=== PATIENT | male | born 1970 ===

== ENCOUNTER 2025-10-09 13:36 | Inpatient (IN) | payer OTHER, SELFPAY ==
[2025-10-09 13:39] VITALS: BP 119/69; PULSE 92; RESP 20; TEMP 35.7; O2SAT 96; BMI 29.7
--- NOTE | 2025-10-09 13:41 | ED.GENADULT ---
HPI - General Adult General Chief complaint: Psychiatric Symptoms Stated complaint: medical clearance Time Seen by Provider: 10/09/25 14:22 Source: patient Mode of arrival: ambulatory Limitations: no limitations History of Present Illness ED Provider: Rachael Kennedy PA-C HPI narrative: Patient is a 55 year old assigned male at with no reported medical history presenting to the emergency department today for possible psychiatric admission. Patient states that he was sent here by [facility] to be admitted to the psychiatric unit but needs to be medically cleared first. Patient denies any thoughts of hurting himself or others. Patient denies any other complaints at this time. Related Data Home Medications ?Medication ?Instructions ?Recorded ?Confirmed haloperidol 10 mg tablet 10 mg PO BEDTIME 10/10/25 10/10/25 melatonin 3 mg tablet 6 mg PO BEDTIME PRN Insomnia 10/10/25 10/10/25 Allergies Allergy/AdvReac Type Severity Reaction Status Date / Time aspirin (ASA) Allergy Unknown RASH Verified 10/09/25 13:41 ibuprofen (From MOTRIN) Allergy Unknown UNKNOWN Verified 10/09/25 13:41 Penicillins (PENICILLINS) Allergy Unknown RASH Verified 10/09/25 13:41 Review of Systems Constitutional: Constitutional: Reports as per HPI Eyes: Eyes: Reports as per HPI ENT: Reports as per HPI Cardiovascular: Cardiovascular: Reports as per HPI Respiratory: Respiratory: Reports as per HPI Gastrointestinal: Gastrointestinal: Reports as per HPI Genitourinary: Genitourinary: Reports as per HPI Musculoskeletal: Musculoskeletal: Reports as per HPI Integumentary/Breasts: Skin/Breast: Reports as per HPI Neurologic: Reports as per HPI Psychiatric: Psychiatric: Reports as per HPI Endocrine: Endocrine: Reports as per HPI Hematologic/Lymphatic: Hematologic/Lymphatic: Reports as per HPI Allergic/Immunologic: Allergic/Immunologic: Reports as per HPI PMFSH Past Medical History Attestation statement: The following information was validated with the patient. Source: old records reviewed and nursing notes reviewed Social History Social History Household Members: None Housing: Homeless Do you presently have visiting nurse or other home services: No Patient Tobacco Use Status: Current everyday Tobacco user Tobacco use type: Cigarette Smoked in Last 30 Days: Yes Patient Interested in Nicotine Replacement: Yes Patient Given Instructions on How to Stop Smoking: No Second Hand Smoke Exposure: No Currently Displaying Signs/Symptoms of Drug Intoxication Withdrawal: No Have you been hit, kicked, punched, or otherwise hurt by someone within the past year? If so, by whom?: No Do you feel safe in your current relationship?: Yes Is there a partner from a previous relationship who is making you feel unsafe now?: No Are you made to feel afraid or neglected: No Advance Directives: No Advance Directives Information Provided: Yes Do you have thoughts of harming others: None Do you have a plan to hurt others: No Plan Recently lost weight without trying: No How much weight loss: Not applicable Eating poorly because of decreased appetite: No Nutrition screen score: 0 Nutrition Risks: No Nutritional Risk Poor oral hygiene: No Physical Exam ED Vital Signs: Vital Signs - 24 hr 10/09/25 13:39 Temperature 96.2 F L Pulse Rate 92 Respiratory Rate 20 Blood Pressure 119/69 Pulse Oximetry 96 Oxygen Delivery Method Room Air BMI result Body Mass Index 29.7 Const General: cooperative, no acute distress, alert and awake Nutritional Appearance: well nourished Orientation/consciousness: patient oriented x3 HENMT Head: Yes normal to inspection and Yes atraumatic Ears: hearing grossly normal bilaterally and external ears normal General nose exam: Normal external nose present, no nasal discharge noted and no epistaxis Face and sinus: Yes normal facial exam, No abrasion and No laceration Mouth: Normal oral and palatal mucosa present, no drooling and no muffled voice Eyes General: appearance normal, both eyes and all related structures Periorbital: periorbital findings normal Eyelids: Yes eyelids normal Conjunctivae: conjunctivae normal Pupils: Equal, round and reactive pupils present EOM: EOMs intact bilaterally Neck Neck: Yes normal visual inspection and Yes full ROM Resp Effort & Inspection: normal respiratory effort and able to speak in complete sentences Neuro General: patient oriented x3, moves all extremities and CN's II-XI intact bilaterally Cranial nerves: Yes Equal, round and reactive pupils present Cognition (Neuro): normal cognition Extrem General: Yes normal to inspection, Yes full ROM and Yes capillary refill normal Psych Appearance: grossly normal Mental Status: mental status grossly normal Course Course Course Narrative: This is a Rapid Medical Examination (RME) performed by Sonja Alvarado PA-C in triage. Full HPI, ROS, assessment and treatment plan per primary provider in the Main ED. Hx: 55 yo M here with nephew. patient was seen by [facility] crisis - [facility] however advised he come here to be medically cleared as he is confused and not taking his meds. patient denies si/hi. Plan: labs, UA, UDS, ekg - once medically cleared, needs to be referred to care team. Medications Administered Generic Name Dose Route Start Last Admin Trade Name Freq PRN Reason Stop Dose Admin Acetaminophen 650 mg 10/10/25 13:03 10/10/25 14:55 Acetaminophen 325 Mg Tablet PO 650 mg Q6H PRN Administration Headache/Pain, Scale 1-10 Buprenorphine/Naloxone 1 film 10/10/25 16:30 10/10/25 21:30 Buprenorphine/Naloxone 8/2 Mg Film SUBLINGUAL 1 film TID KACI Administration Haloperidol 5 mg 10/10/25 21:00 10/10/25 21:30 Haloperidol 5 Mg Tablet PO 5 mg BEDTIME KACI Administration Hydroxyzine HCl 25 mg 10/10/25 13:03 10/10/25 15:45 Hydroxyzine Hcl 25 Mg Tablet PO 25 mg Q6H PRN Administration mild anxiety Melatonin 6 mg 10/10/25 21:00 10/10/25 21:30 Melatonin 3 Mg Tablet PO 6 mg BEDTIME KACI Administration Nicotine Polacrilex 4 mg 10/10/25 13:03 10/10/25 15:45 Nicotine Polacrilex 2 Mg Gum BUCCAL 4 mg Q2H PRN Administration Nicotine Cravings Discontinued Medications Generic Name Dose Route Start Last Admin Trade Name Freq PRN Reason Stop Dose Admin Influenza Virus Vaccine 0.5 ml 10/10/25 16:29 10/10/25 17:09 Flu Vacc [id number](6mo Up)/Pf 0.5 Ml Syringe IM 10/10/25 16:30 0.5 ml .ONCE ONE Administration Olanzapine 5 mg 10/10/25 13:03 10/10/25 15:44 Olanzapine 5 Mg Tablet PO 5 mg Q4H PRN Administration agitation Medical Decision Making Medical Decision Making [facility] Narrative: Patient is a 55 year old assigned male at with no reported medical history presenting to the emergency department today for possible psychiatric admission. Patient's physical exam was as noted in the physical exam portion of this note. Patient's blood work was unremarkable. Patient's urine showed no acute process. I explained my physical exam findings as well as all test results to the patient. I answered all questions asked by the patient. Patient's disposition pending CARE team evaluation. Patient placed in observation at 1430. Differential Diagnosis Differential Diagnoses: The differential diagnosis associated with the presentation includes Psychosis Psychiatric illness Admission/Observation Consideration of admission/observation: Escalation of care including admission/observation considered Patient's disposition will be determined after CARE team evaluation. Lab Data [facility] Lab Attestation statement: I reviewed the patient's lab results. My interpretation of these results are in the [facility] Rationale portion of this note. 10/09/25 14:05 10/09/25 14:05 Labs: Lab Results 10/09/25 10/09/25 10/09/25 Range/Units 14:05 14:07 16:11 WBC 6.6 (4.8-10.8) X10*3/uL RBC 4.36 L (4.60-5.80) X10*6/uL Hgb 12.7 L (14.0-18.0) g/dl Hct 37.3 L (42.0-52.0) % MCV 85.6 (80.0-98.0) fL MCH 29.1 (27.0-33.0) pg MCHC 34.0 (31.0-36.0) g/dl RDW 12.8 (11.0-16.0) % Plt Count 226 (160-400) X10*3/uL MPV 9.7 (9.4-12.4) fL Immature Gran % (Auto) 0.2 (0.0-0.4) % Neut % (Auto) 73.0 (45-73) % Lymph % (Auto) 20.9 (20-40) % [place] % (Auto) 5.5 (2-11) % Eos % (Auto) 0.2 (0-4) % Baso % (Auto) 0.2 (0-2) % Lymph # (Auto) 1.4 (1.2-4.9) X10*3/uL [place] # (Auto) 0.4 (0.1-1.2) X10*3/uL Eos # (Auto) 0.0 (0.0-0.4) X10*3/uL Baso # (Auto) 0.0 (0.0-0.2) X10*3/uL Abs Immat Gran (auto) 0.01 (0.00-0.03) X10*3/uL Absolute Neuts (auto) 4.8 (2.0-8.3) x10*3/uL Absolute Nucleated RBC 0.000 (0.0-0.012) X10*3/uL Nucleated RBC % (auto) 0.0 (0.0-0.2) /100WBC Sodium 141 (135-145) mmol/L Potassium 4.0 (3.3-5.1) mmol/L Chloride 109 H (96-108) mmol/L Carbon Dioxide 22 (22-29) mmol/L Anion Gap 14 (12-20) BUN 18 H (9-16) mg/dL Creatinine 1.18 (0.5-1.4) mg/dL Estim Creat Clear Calc 89.8 Estimated GFR > 60 Random Glucose 134 H (60-115) mg/dL Calcium 9.5 (8.4-10.2) mg/dL Magnesium 1.8 (1.6-2.6) mg/dL Total Bilirubin 0.3 (0.0-1.0) mg/dL AST 14 (5-37) U/L ALT 11 (0-40) U/L Alkaline Phosphatase 70 (39-117) U/L Total Protein 8.1 H (6.5-8.0) g/dL Albumin 4.6 (3.5-5.0) g/dL Lipase 18 (8-78) U/L Urine Color Yellow Yellow Urine Appearance Clear Clear Urine pH 5.5 6.0 (5.0-9.0) Ur Specific [place] 1.020 1.015 (1.005-1.025) Urine Protein Negative Negative (Neg-Trace) mg/dL Urine Glucose (UA) Negative Negative (Negative) mg/dL Urine Ketones Negative Negative (Negative) mg/dL Urine Blood Small (1+) H Small (1+) H (Negative) Urine Nitrite Negative Negative (Negative) Ur Leukocyte Esterase Negative Negative (Negative) Urine RBC 0-2 0-2 (0-2) /HPF Urine WBC 0-5 0-5 (0-5) /HPF Ur Squamous Epith Cells 0-2 0-2 (0-2) /HPF Urine Bacteria None Seen None Seen (None Seen) Hyaline Casts 0-2 0-2 (0-2) /LPF Salicylates < 5.0 L (15-30) mg/dL Urine Opiates Screen Not Detected (Not Detect) Ur Buprenorphine Scrn Positive H (Not Detect) ng/mL Ur Oxycodone Screen Not Detected (Not Detect) ng/mL Urine Methadone Screen Not Detected (Not Detect) ng/mL Urine Fentanyl Screen Not Detected (Not Detect) Acetaminophen < 3 (<30) mcg/mL Ur Barbiturates Screen Not Detected (Not Detect) Ur Phencyclidine Scrn Not Detected (Not Detect) Ur Amphetamines Screen Not Detected (Not Detect) U Benzodiazepines Scrn Not Detected (Not Detect) Urine Cocaine Screen Not Detected (Not Detect) U Marijuana (THC) Screen Not Detected (Not Detect) Ethyl Alcohol < 10 mg/dL Critical Care Time Critical Care Time Critical Care Time: Yes Total Critical Care Time: 34 Attestation: I spent 34 minutes of Critical Care Time with this patient. This does not include time spent on separately reported billable procedures. Discharge Plan Discharge Clinical Impression: Depressed Patient Disposition: Admitted As Inpatient Interventions: Admission Worksheet (ED) Last Done: 10/10/25 14:26 Discharge Date/Time: 10/10/25 14:39
--- NOTE | 2025-10-09 13:47 | ECG_ITS ---
Test Reason : MEDICAL CLEARANCE Blood Pressure : */* mmHG Vent. Rate : 88 BPM Atrial Rate : 88 BPM P-R Int : 154 ms QRS Dur : 88 ms QT Int : 388 ms P-R-T Axes : 49 55 61 degrees QTcB Int : 469 ms Normal sinus rhythm Normal ECG No previous ECGs available Referred By: Jelena Alvarado Electronically Signed By: NAGI KERR
[2025-10-09 14:25] LABS: MANUAL DIFF FLAG NO
[2025-10-09 14:26] LABS: Hematocrit 37.3 % (42.0-52.0); Hemoglobin 12.7 g/dl (14.0-18.0); Imm Gran Abs Auto 0.01 X10*3/uL (0.00-0.03); Imm Gran Pct Auto 0.2 % (0.0-0.4); Lymphocytes Absolute Auto 1.4 X10*3/uL (1.2-4.9); Mean Corpuscular HGB Conc 34.0 g/dl (31.0-36.0); Mean Corpuscular Hemoglobin 29.1 pg (27.0-33.0); Mean Corpuscular Volume 85.6 fL (80.0-98.0); NRBC Abs Auto 0.000 X10*3/uL (0.0-0.012); NRBC Pct Auto 0.0 /100WBC (0.0-0.2); Platelet Count 226 X10*3/uL (160-400); Red Blood Count 4.36 X10*6/uL (4.60-5.80); White Blood Count 6.6 X10*3/uL (4.8-10.8)
[2025-10-09 14:27] LABS: Appearance Urine Clear; Glucose Urine UA Negative (Negative); PH 5.5 (5.0-9.0); Specific Gravity - Urine 1.020 (1.005-1.025); UMIC TRIGGER UACC YES
[2025-10-09 14:36] LABS: Cannabinoid Screen Urine Not Detected (Not Detect)
[2025-10-09 14:43] LABS: Acetaminophen LAB < 3 mcg/mL (<30); Alanine Aminotransferase 11 U/L (0-40); Albumin Level 4.6 g/dL (3.5-5.0); Alkaline Phosphatase 70 U/L (39-117); Anion Gap 14 (12-20); Aspartate Amino Transferase 14 U/L (5-37); Blood Urea Nitrogen 18 mg/dL (9-16); Calcium 9.5 mg/dL (8.4-10.2); Carbon Dioxide 22 mmol/L (22-29); Chloride 109 mmol/L (96-108); Creatinine Clr Calc Pharmacy 89.8; Estimated Glomerular Filt Rate > 60; Lipase 18 U/L (8-78); Magnesium 1.8 mg/dL (1.6-2.6); Potassium 4.0 mmol/L (3.3-5.1); Salicylate < 5.0 mg/dL (15-30); Sodium 141 mmol/L (135-145); Total Protein 8.1 g/dL (6.5-8.0)
[2025-10-09 16:18] LABS: Appearance Urine Clear; Glucose Urine UA Negative (Negative); PH 6.0 (5.0-9.0); Specific Gravity - Urine 1.015 (1.005-1.025); UMIC TRIGGER UACC YES
--- NOTE | 2025-10-09 17:09 | MHC.EDTECH ---
Personal items moved from locker 9 to locker 4.
[2025-10-09 20:44] VITALS: BP 137/72; PULSE 76; RESP 16; TEMP 36.4; O2SAT 97
--- NOTE | 2025-10-09 23:32 | PC.NURSE ---
Took over care from MARTI Hewitt, no sign of distress.
[2025-10-10 06:31] VITALS: BP 119/75; PULSE 72; RESP 16; TEMP 36; O2SAT 99
--- NOTE | 2025-10-10 11:10 | PHA.MEDREC ---
Pharmacy Consult ? Medication Reconciliation Pharmacy has reviewed the medication reconciliation completed by nursing.
[2025-10-10 13:57] VITALS: BP 108/60; PULSE 68; RESP 14; TEMP 36.2; O2SAT 98
[2025-10-10 14:50] VITALS: BP 136/88; PULSE 86; RESP 16; TEMP 37; O2SAT 96
[2025-10-10 15:19] VITALS: BMI 29.2
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
[2025-10-10] MEDS: Flu Vacc TS2025-26(6mo up)/PF 0.5 ML SYRINGE IM (17:09)
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
[2025-10-10 19:40] VITALS: BP 131/77; PULSE 81; RESP 16; TEMP 2.4; TEMP 36.4; O2SAT 98
[2025-10-11 08:21] VITALS: BP 95/61; PULSE 59; RESP 14; TEMP 36.6; O2SAT 95
--- NOTE | 2025-10-11 08:21 | P.CONHOSP_ITS ---
History of Present Illness Data of Consult Service Date: 10/11/25 Primary Care Provider: Unknown Physician HPI Reason for consult: Medical Consult 55-year-old male with past medical history of schizoaffective disorder, PTSD, opioid use disorder and cocaine use disorder, chronic back and leg pain presented to the emergency room with increased anxiety and depression, medication nonadherence. Patient was sent by [facility] for psychiatric admission evaluation. Workup in the ED revealed mild anemia, no leukocytosis, no evidence of renal or liver dysfunction, no electrolyte imbalances. Urine without evidence of infection. Tox screen positive for buprenorphine. No alcohol. On exam he reports chronic leg and back pain, takes gabapentin which is confirmed with mass PAT. He otherwise feels well has no medical concerns. Assisted by [employer] manager. Review of Systems 2 Review of Systems: Denies any shortness of breath, chest pain, headaches, dysuria, abdominal pain or discomfort, nausea, vomiting or diarrhea. Denies fever or chills. [facility] Social History Household Members: None Housing: Homeless Do you presently have visiting nurse or other home services: No Patient Tobacco Use Status: Current everyday Tobacco user Tobacco use type: Cigarette Smoked in Last 30 Days: Yes Patient Interested in Nicotine Replacement: Yes Patient Given Instructions on How to Stop Smoking: No Second Hand Smoke Exposure: No Currently Displaying Signs/Symptoms of Drug Intoxication Withdrawal: No Have you been hit, kicked, punched, or otherwise hurt by someone within the past year? If so, by whom?: No Do you feel safe in your current relationship?: Yes Is there a partner from a previous relationship who is making you feel unsafe now?: No Are you made to feel afraid or neglected: No Advance Directives: No Advance Directives Information Provided: Yes Do you have thoughts of harming others: None Do you have a plan to hurt others: No Plan Recently lost weight without trying: No How much weight loss: Not applicable Eating poorly because of decreased appetite: No Nutrition screen score: 0 Nutrition Risks: No Nutritional Risk Poor oral hygiene: No service: No Sexual orientation: Straight/Heterosexual Meds Allergies Allergy/AdvReac Type Severity Reaction Status Date / Time aspirin (ASA) Allergy Unknown RASH Verified 10/09/25 13:41 ibuprofen (From MOTRIN) Allergy Unknown UNKNOWN Verified 10/09/25 13:41 Penicillins (PENICILLINS) Allergy Unknown RASH Verified 10/09/25 13:41 Active Medications: Current Medications Acetaminophen (Acetaminophen 325 Mg Tablet) 650 mg PO Q6H PRN PRN Reason: Headache/Pain, Scale 1-10 Last Admin: 10/10/25 14:55 Dose: 650 mg Al Hydroxide/Mg Hydroxide (Magnesium Hydrox/Alum Hydrox 30 Ml Oral.Susp) 30 ml PO Q6H PRN PRN Reason: Heartburn/Nausea Buprenorphine/Naloxone (Buprenorphine/Naloxone 8/2 Mg Film) 1 film SUBLINGUAL TID KACI Last Admin: 10/10/25 21:30 Dose: 1 film Haloperidol (Haloperidol 5 Mg Tablet) 5 mg PO BEDTIME KACI Last Admin: 10/10/25 21:30 Dose: 5 mg Haloperidol (Haloperidol 5 Mg Tablet) 5 mg PO TID PRN PRN Reason: agitation/psychosis Hydroxyzine HCl (Hydroxyzine Hcl 25 Mg Tablet) 25 mg PO Q6H PRN PRN Reason: mild anxiety Last Admin: 10/10/25 15:45 Dose: 25 mg Magnesium Hydroxide (Milk Of Magnesia 30 Ml Oral.Susp) 30 ml PO DAILY PRN PRN Reason: Constipation Melatonin (Melatonin 3 Mg Tablet) 6 mg PO BEDTIME [facility] Last Admin: 10/10/25 21:30 Dose: 6 mg Nicotine (Nicotine 21 Mg Patch.Td24) 21 mg TRANSDERMA DAILY [facility] Nicotine Polacrilex (Nicotine Polacrilex 2 Mg Gum) 4 mg BUCCAL Q2H PRN PRN Reason: Nicotine Cravings Last Admin: 10/10/25 15:45 Dose: 4 mg Trazodone HCl (Trazodone Hcl 50 Mg Tablet) 50 mg PO BEDTIME MRX1 PRN PRN Reason: Insomnia Home Medications ?Medication ?Instructions ?Recorded ?Confirmed ?Last Taken ?Type haloperidol 10 mg tablet 10 mg PO BEDTIME 10/10/25 Unknown History melatonin 3 mg tablet 6 mg PO BEDTIME PRN Insomnia 10/10/25 10/10/25 Unknown History Physical Exam 2 Vital Signs and Narrative: Vital Signs: Last Vital Signs Temp 36.4 F L 10/10/25 19:40 Pulse 81 10/10/25 19:40 Resp 16 10/10/25 19:40 BP 131/77 10/10/25 19:40 Pulse Ox 98 10/10/25 19:40 O2 Del Method Room Air 12/03/25 19:40 BMI result Body Mass Index 29.2 Alert and oriented X3, calm and cooperative. Answers questions. Neuro: CN II-X11 intact, no deficits, visual acuity intact EYES: PERRLA, EOM intact ENT: Hearing intact, MMM Cardiac: S1 S2 RRR, No ectopy Pulmonary: lungs clear to auscultation, No increased WOB. Abdominal: BS active in all 4 quadrants, no guarding or tenderness MSK: Strength 5/5 upper and lower extremities. Shaking his legs during the visit. : Deferred Extremities: No edema in lower extremities Psych: Mood stable, Quiet and cooperative. Skin: Warm and dry, Intact Results Labs 10/09/25 14:05 10/09/25 14:05 Assessment and Plan (1) Chronic back pain: Status: Acute Plan 55-year-old male with past medical history listed below who presented to the ED with increased depression and anxiety from CHD. Now admitted for inpatient stabilization. Opioid use disorder/cocaine use disorder/PTSD/depression/anxiety/schizoaffective disorder Treatment per psychiatric team Chronic leg and back pain Continue gabapentin 400 mg t.i.d. Confirmed that patient has been receiving this dose per mass PAT Thank you for allowing me to participate in the care of this patient. Will follow with you, please notify medical provider with any changes in condition or concerns.
[2025-10-11] MEDS: Nicotine 21 MG PATCH.TD24 TRANSDERMA (08:43)
--- NOTE | 2025-10-11 10:05 | HO.PSYCHPN ---
Subjective Subjective Date of Service: 10/11/25 Reason For Visit: crisis Subjective Notes: Conditional Voluntary Interim History: <del>Laying</del> <del>in</del> <del>bed.</del> <del>[place]olan</del> <del>vp site</del> <del>present.</del> <del>Patient</del> <del>observed</del> <del>consistently</del> <del>shaking</del> <del>legs</del> <del>throughout</del> <del>assessment.</del> <del>Patient</del> <del>reports</del> <del>feeling</del> <del> anxious</del> <del>and</del> <del>depressed </del> <del>today;</del> <del>pt</del> <del>continues</del> <del>to</del> <del>reports</del> <del>auditory</del> <del>hallucinations</del> <del>however</del> <del>will</del> <del>not</del> <del>go</del> <del>into</del> <del>detail</del> <del>about</del> <del>what</del> <del>the</del> <del>voices</del> <del>are</del> <del>saying.</del> <del>He</del> <del>reports</del> <del>visual</del> <del>hallucinations</del> <del>of</del> <del> shadows .</del> <del>denies</del> <del>SI/HI.</del> <del>Patient</del> <del>reports</del> <del>he</del> <del>is</del> <del> still</del> <del>have</del> <del>voices</del> <del>but</del> <del>they</del> <del>are</del> <del>less</del> <del>today ;</del> <del>denies</del> <del>any</del> <del>side</del> <del>effects</del> <del>from</del> <del>medications.</del> <del>Increase</del> <del>Haldol</del> <del>to</del> <del>10mg</del> <del>PO</del> <del>bedtime.</del> <del>He</del> <del>reports</del> <del>sleeping</del> <del>well.</del> <del>Encouraged</del> <del>to</del> <del>get</del> <del>out</del> <del>of</del> <del>be</del>d. Medication Compliance: Yes Side effects from medications: No Attending Groups: No Mental Status Exam Mental Status Exam Narrative: Pt is alert and oriented; behavior is cooperative and calm, guarded, legs shaking throughout assessment; dressed in casual attire; mood is described as anxious and depressed ; eye contact appropriate; Speech is normal rate, volume and not pressured; thought process is organized; Thought content is on tx; denies SI/HI. +AH, +VH of shadows . Diagnostics Vital Signs (24Hr): Vital Signs - 24 hr 10/10/25 13:57 10/10/25 14:50 10/10/25 19:40 Temperature 97.2 F 98.6 F 36.4 F L Pulse Rate 68 86 81 Respiratory Rate 14 16 16 Blood Pressure 108/60 136/88 131/77 Pulse Oximetry 98 96 98 Oxygen Delivery Method Room Air Room Air Room Air 10/11/25 08:21 Temperature 97.8 F Pulse Rate 59 Respiratory Rate 14 Blood Pressure 95/61 Pulse Oximetry 95 Oxygen Delivery Method Room Air BMI result Body Mass Index 29.2 Labs 10/09/25 14:05 10/09/25 14:05 Labs: Laboratory Results - last 48 hr 10/09/25 10/09/25 10/09/25 14:05 14:07 16:11 WBC 6.6 RBC 4.36 L Hgb 12.7 L Hct 37.3 L MCV 85.6 MCH 29.1 MCHC 34.0 RDW 12.8 Plt Count 226 MPV 9.7 Immature Gran % (Auto) 0.2 Neut % (Auto) 73.0 Lymph % (Auto) 20.9 [place] % (Auto) 5.5 Eos % (Auto) 0.2 Baso % (Auto) 0.2 Lymph # (Auto) 1.4 [place] # (Auto) 0.4 Eos # (Auto) 0.0 Baso # (Auto) 0.0 Abs Immat Gran (auto) 0.01 Absolute Neuts (auto) 4.8 Absolute Nucleated RBC 0.000 Nucleated RBC % (auto) 0.0 Sodium 141 Potassium 4.0 Chloride 109 H Carbon Dioxide 22 Anion Gap 14 BUN 18 H Creatinine 1.18 Estim Creat Clear Calc 89.8 Estimated GFR > 60 Random Glucose 134 H Calcium 9.5 Magnesium 1.8 Total Bilirubin 0.3 AST 14 ALT 11 Alkaline Phosphatase 70 Total Protein 8.1 H Albumin 4.6 Lipase 18 Urine Color Yellow Yellow Urine Appearance Clear Clear Urine pH 5.5 6.0 Ur Specific [place] 1.020 1.015 Urine Protein Negative Negative Urine Glucose (UA) Negative Negative Urine Ketones Negative Negative Urine Blood Small (1+) H Small (1+) H Urine Nitrite Negative Negative Ur Leukocyte Esterase Negative Negative Urine RBC 0-2 0-2 Urine WBC 0-5 0-5 Ur Squamous Epith Cells 0-2 0-2 Urine Bacteria None Seen None Seen Hyaline Casts 0-2 0-2 Salicylates < 5.0 L Urine Opiates Screen Not Detected Ur Buprenorphine Scrn Positive H Ur Oxycodone Screen Not Detected Urine Methadone Screen Not Detected Urine Fentanyl Screen Not Detected Acetaminophen < 3 Ur Barbiturates Screen Not Detected Ur Phencyclidine Scrn Not Detected Ur Amphetamines Screen Not Detected U Benzodiazepines Scrn Not Detected Urine Cocaine Screen Not Detected U Marijuana (THC) Screen Not Detected Ethyl Alcohol < 10 Medications Medications Current Medications Acetaminophen (Acetaminophen 325 Mg Tablet) 650 mg PO Q6H PRN PRN Reason: Headache/Pain, Scale 1-10 Last Admin: 10/11/25 08:47 Dose: 650 mg Al Hydroxide/Mg Hydroxide (Magnesium Hydrox/Alum Hydrox 30 Ml Oral.Susp) 30 ml PO Q6H PRN PRN Reason: Heartburn/Nausea Buprenorphine/Naloxone (Buprenorphine/Naloxone 8/2 Mg Film) 1 film SUBLINGUAL TID KACI Last Admin: 10/11/25 08:44 Dose: 1 film Haloperidol (Haloperidol 5 Mg Tablet) 5 mg PO BEDTIME KACI Last Admin: 10/10/25 21:30 Dose: 5 mg Haloperidol (Haloperidol 5 Mg Tablet) 5 mg PO TID PRN PRN Reason: agitation/psychosis Hydroxyzine HCl (Hydroxyzine Hcl 25 Mg Tablet) 25 mg PO Q6H PRN PRN Reason: mild anxiety Last Admin: 10/10/25 15:45 Dose: 25 mg Magnesium Hydroxide (Milk Of Magnesia 30 Ml Oral.Susp) 30 ml PO DAILY PRN PRN Reason: Constipation Melatonin (Melatonin 3 Mg Tablet) 6 mg PO BEDTIME KACI Last Admin: 10/10/25 21:30 Dose: 6 mg Nicotine (Nicotine 21 Mg Patch.Td24) 21 mg TRANSDERMA DAILY [facility] Last Admin: 10/11/25 08:43 Dose: 21 mg Nicotine Polacrilex (Nicotine Polacrilex 2 Mg Gum) 4 mg BUCCAL Q2H PRN PRN Reason: Nicotine Cravings Last Admin: 10/10/25 15:45 Dose: 4 mg Trazodone HCl (Trazodone Hcl 50 Mg Tablet) 50 mg PO BEDTIME MRX1 PRN PRN Reason: Insomnia Allergies Allergies Allergy/AdvReac Type Severity Reaction Status Date / Time aspirin (ASA) Allergy Unknown RASH Verified 10/09/25 13:41 ibuprofen (From MOTRIN) Allergy Unknown UNKNOWN Verified 10/09/25 13:41 Penicillins (PENICILLINS) Allergy Unknown RASH Verified 10/09/25 13:41 Assessment & Plan Assessment & Plan (1) Schizoaffective disorder: Status: Acute Code(s): F25.9 - Schizoaffective disorder, unspecified (2) PTSD (post-traumatic stress disorder): Status: Acute Code(s): F43.10 - Post-traumatic stress disorder, unspecified (3) Opioid use disorder: Status: Acute Code(s): F11.90 - Opioid use, unspecified, uncomplicated (4) Cocaine use disorder in remission: Status: Acute Code(s): F14.91 - Cocaine use, unspecified, in remission (5) Homelessness: Status: Acute Code(s): Z59.00 - Homelessness unspecified Plan Patient is a 55 year old male with hx of schizoaffective d/o, PTSD, opioid use d/o and cocaine use d/o who presented to ER with his nephew due to increased anxiety and depression secondary to medication noncompliance. Plan: CV 15 minute safety checks Obtain collateral Addiction medicine consult Encourage groups Referral to outpatient psychiatric providers Discharge planning 10/11: Laying in bed. full time staff interpreter present. Patient observed consistently shaking legs throughout assessment. Patient reports feeling anxious and depressed today; pt continues to reports auditory hallucinations however will not go into detail about what the voices are saying. He reports visual hallucinations of shadows . denies SI/HI. Patient reports he is still have voices but they are less today ; denies any side effects from medications. Increase Haldol to 10mg PO bedtime. He reports sleeping well. Encouraged to get out of bed. Patient educated on: diagnosis and medication risk/benefits Reason for continued inpatient stay Substantial Risk for: med/psych decompensation Time Spent With Patient Time: Total time managing care of this patient today _20___ minutes.
[2025-10-11 20:00] VITALS: BP 122/65; PULSE 65; RESP 18; TEMP 36.5; O2SAT 100
[2025-10-12 07:44] VITALS: BP 93/66; PULSE 58; RESP 18; TEMP 36.7; O2SAT 99
[2025-10-12] MEDS: Nicotine 21 MG PATCH.TD24 TRANSDERMA (08:37)
--- NOTE | 2025-10-12 14:22 | HO.PSYCHPN ---
Subjective Subjective Date of Service: 10/12/25 Reason For Visit: crisis Subjective Notes: Conditional Voluntary Interim History: oral communication instructor present. Patient reports feeling depressed today; pt continues to reports auditory hallucinations but declines to state what he is hearing. denies SI/HI/VH. Encouraged to utilize PRN Haldol if needed. He reports sleeping well. Continue tx plan. Medication Compliance: Yes Side effects from medications: No Attending Groups: No Mental Status Exam Mental Status Exam Narrative: Pt is alert and oriented; behavior is cooperative and calm, guarded; dressed in casual attire; mood is described as depressed ; eye contact appropriate; Speech is normal rate, volume and not pressured; thought process is organized; Thought content is on tx; denies SI/HI/VH. +AH Diagnostics Vital Signs (24Hr): Vital Signs - 24 hr 10/11/25 20:00 10/12/25 07:44 Temperature 97.7 F 98.1 F Pulse Rate 65 58 Respiratory Rate 18 18 Blood Pressure 122/65 93/66 Pulse Oximetry 100 99 Oxygen Delivery Method Room Air Room Air BMI result Body Mass Index 29.2 Labs 10/09/25 14:05 10/09/25 14:05 Medications Medications Current Medications Acetaminophen (Acetaminophen 325 Mg Tablet) 650 mg PO Q6H PRN PRN Reason: Headache/Pain, Scale 1-10 Last Admin: 10/11/25 08:47 Dose: 650 mg Al Hydroxide/Mg Hydroxide (Magnesium Hydrox/Alum Hydrox 30 Ml Oral.Susp) 30 ml PO Q6H PRN PRN Reason: Heartburn/Nausea Buprenorphine/Naloxone (Buprenorphine/Naloxone 8/2 Mg Film) 1 film SUBLINGUAL TID [facility] Last Admin: 10/12/25 08:37 Dose: 1 film Gabapentin (Gabapentin 400 Mg Capsule) 400 mg PO TID [facility] Last Admin: 10/12/25 08:37 Dose: 400 mg Haloperidol (Haloperidol 5 Mg Tablet) 5 mg PO TID PRN PRN Reason: agitation/psychosis Last Admin: 10/11/25 11:44 Dose: 5 mg Haloperidol (Haloperidol 5 Mg Tablet) 10 mg PO BEDTIME [facility] Last Admin: 10/11/25 20:12 Dose: 10 mg Hydroxyzine HCl (Hydroxyzine Hcl 25 Mg Tablet) 25 mg PO Q6H PRN PRN Reason: mild anxiety Last Admin: 10/11/25 11:29 Dose: 25 mg Magnesium Hydroxide (Milk Of Magnesia 30 Ml Oral.Susp) 30 ml PO DAILY PRN PRN Reason: Constipation Melatonin (Melatonin 3 Mg Tablet) 6 mg PO BEDTIME [facility] Last Admin: 10/11/25 20:11 Dose: 6 mg Nicotine (Nicotine 21 Mg Patch.Td24) 21 mg TRANSDERMA DAILY [facility] Last Admin: 10/12/25 08:37 Dose: 21 mg Nicotine Polacrilex (Nicotine Polacrilex 2 Mg Gum) 4 mg BUCCAL Q2H PRN PRN Reason: Nicotine Cravings Last Admin: 10/10/25 15:45 Dose: 4 mg Trazodone HCl (Trazodone Hcl 50 Mg Tablet) 50 mg PO BEDTIME MRX1 PRN PRN Reason: Insomnia Allergies Allergies Allergy/AdvReac Type Severity Reaction Status Date / Time aspirin (ASA) Allergy Unknown RASH Verified 10/09/25 13:41 ibuprofen (From MOTRIN) Allergy Unknown UNKNOWN Verified 10/09/25 13:41 Penicillins (PENICILLINS) Allergy Unknown RASH Verified 10/09/25 13:41 Assessment & Plan Assessment & Plan (1) Schizoaffective disorder: Status: Acute Code(s): F25.9 - Schizoaffective disorder, unspecified (2) PTSD (post-traumatic stress disorder): Status: Acute Code(s): F43.10 - Post-traumatic stress disorder, unspecified (3) Opioid use disorder: Status: Acute Code(s): F11.90 - Opioid use, unspecified, uncomplicated (4) Cocaine use disorder in remission: Status: Acute Code(s): F14.91 - Cocaine use, unspecified, in remission Plan Patient is a 55 year old male with hx of schizoaffective d/o, PTSD, opioid use d/o and cocaine use d/o who presented to ER with his nephew due to increased anxiety and depression secondary to medication noncompliance. Plan: CV 15 minute safety checks Obtain collateral Addiction medicine consult Encourage groups Referral to outpatient psychiatric providers Discharge planning 10/11: Laying in bed. oral communication instructor present. Patient observed consistently shaking legs throughout assessment. Patient reports feeling anxious and depressed today; pt continues to reports auditory hallucinations however will not go into detail about what the voices are saying. He reports visual hallucinations of shadows . denies SI/HI. Patient reports he is still have voices but they are less today ; denies any side effects from medications. Increase Haldol to 10mg PO bedtime. He reports sleeping well. Encouraged to get out of bed. Patient educated on: diagnosis, medication risk/benefits and therapeutic strategies Reason for continued inpatient stay Substantial Risk for: med/psych decompensation Time Spent With Patient Time: Total time managing care of this patient today _20___ minutes.
[2025-10-12 20:00] VITALS: BP 105/58; PULSE 66; RESP 16; TEMP 36.6; O2SAT 96
[2025-10-13 08:23] VITALS: BP 97/65; PULSE 54; RESP 16; TEMP 36.6; O2SAT 95
[2025-10-13] MEDS: Nicotine 21 MG PATCH.TD24 TRANSDERMA (08:55)
--- NOTE | 2025-10-13 09:18 | P.PNPSI_ITS ---
Subjective Subjective Date of Service: 10/13/25 Reason For Visit: crisis Subjective Notes: Conditional Voluntary Interim History: met with patient. Discussed with Nursing. Interviewed utilizing video steel rule die maker apprentice ID [phone] [id number]. declining labs. Largely isolative. Decreasing hallucinations and depression , but would like medications increased. Sleeping well. Less irritable. Medication Compliance: Yes Side effects from medications: No Attending Groups: No Review of Systems Acute medical concerns: No Review of Systems Review of Systems nothing acute Mental Status Exam Mental Status Exam Narrative: Pt is alert and oriented; behavior is cooperative and calm, guarded; dressed in casual attire , poor self-care in bed; mood is described as depressed ; eye contact appropriate; Speech is normal rate, volume and not pressured; thought process is organized; Thought content is on tx; denies SI/HI/VH. +AH Diagnostics Vital Signs (24Hr): Vital Signs - 24 hr 10/12/25 20:00 10/13/25 08:23 Temperature 97.8 F 97.8 F Pulse Rate 66 54 Respiratory Rate 16 16 Blood Pressure 105/58 L 97/65 Pulse Oximetry 96 95 Oxygen Delivery Method Room Air Room Air BMI result Body Mass Index 29.2 Labs 10/09/25 14:05 10/09/25 14:05 Medications Medications Current Medications Acetaminophen (Acetaminophen 325 Mg Tablet) 650 mg PO Q6H PRN PRN Reason: Headache/Pain, Scale 1-10 Last Admin: 10/11/25 08:47 Dose: 650 mg Al Hydroxide/Mg Hydroxide (Magnesium Hydrox/Alum Hydrox 30 Ml Oral.Susp) 30 ml PO Q6H PRN PRN Reason: Heartburn/Nausea Buprenorphine/Naloxone (Buprenorphine/Naloxone 8/2 Mg Film) 1 film SUBLINGUAL TID KACI Last Admin: 10/13/25 08:57 Dose: 1 film Gabapentin (Gabapentin 400 Mg Capsule) 400 mg PO TID [facility]I Last Admin: 10/13/25 08:56 Dose: 400 mg Haloperidol (Haloperidol 5 Mg Tablet) 5 mg PO TID PRN PRN Reason: agitation/psychosis Last Admin: 10/11/25 11:44 Dose: 5 mg Haloperidol (Haloperidol 5 Mg Tablet) 10 mg PO BEDTIME [facility] Last Admin: 10/12/25 20:32 Dose: 10 mg Hydroxyzine HCl (Hydroxyzine Hcl 25 Mg Tablet) 25 mg PO Q6H PRN PRN Reason: mild anxiety Last Admin: 10/11/25 11:29 Dose: 25 mg Magnesium Hydroxide (Milk Of Magnesia 30 Ml Oral.Susp) 30 ml PO DAILY PRN PRN Reason: Constipation Melatonin (Melatonin 3 Mg Tablet) 6 mg PO BEDTIME KACI Last Admin: 10/12/25 20:31 Dose: 6 mg Nicotine (Nicotine 21 Mg Patch.Td24) 21 mg TRANSDERMA DAILY [facility] Last Admin: 10/13/25 08:55 Dose: 21 mg Nicotine Polacrilex (Nicotine Polacrilex 2 Mg Gum) 4 mg BUCCAL Q2H PRN PRN Reason: Nicotine Cravings Last Admin: 10/10/25 15:45 Dose: 4 mg Trazodone HCl (Trazodone Hcl 50 Mg Tablet) 50 mg PO BEDTIME MRX1 PRN PRN Reason: Insomnia Allergies Allergies Allergy/AdvReac Type Severity Reaction Status Date / Time aspirin (ASA) Allergy Unknown RASH Verified 10/09/25 13:41 ibuprofen (From MOTRIN) Allergy Unknown UNKNOWN Verified 10/09/25 13:41 Penicillins (PENICILLINS) Allergy Unknown RASH Verified 10/09/25 13:41 Assessment & Plan Assessment & Plan (1) Schizoaffective disorder: Status: Acute Code(s): F25.9 - Schizoaffective disorder, unspecified (2) PTSD (post-traumatic stress disorder): Status: Acute Code(s): F43.10 - Post-traumatic stress disorder, unspecified (3) Opioid use disorder: Status: Acute Code(s): F11.90 - Opioid use, unspecified, uncomplicated (4) Cocaine use disorder in remission: Status: Acute Code(s): F14.91 - Cocaine use, unspecified, in remission Plan Patient is a 55 year old male with hx of schizoaffective d/o, PTSD, opioid use d/o and cocaine use d/o who presented to ER with his nephew due to increased anxiety and depression secondary to medication noncompliance. Plan: CV 15 minute safety checks Obtain collateral Addiction medicine consult Encourage groups Referral to outpatient psychiatric providers Discharge planning 10/11: Laying in bed. boat repairer present. Patient observed consistently shaking legs throughout assessment. Patient reports feeling anxious and depressed today; pt continues to reports auditory hallucinations however will not go into detail about what the voices are saying. He reports visual hallucinations of shadows . denies SI/HI. Patient reports he is still have voices but they are less today ; denies any side effects from medications. Increase Haldol to 10mg PO bedtime. He reports sleeping well. Encouraged to get out of bed. 10/13/2025: Increase Haldol to 10 mg twice daily Reason for continued inpatient stay Substantial Risk for: inability to function Time Spent With Patient Time: Total time managing care of this patient today ____ minutes.
[2025-10-13 20:00] VITALS: BP 98/60; PULSE 58; RESP 14; TEMP 36.3; O2SAT 95
--- NOTE | 2025-10-14 07:50 | HO.PSYCHPN ---
Subjective Subjective Date of Service: 10/14/25 Reason For Visit: crisis Subjective Notes: Conditional Voluntary Interim History: patient declined to engage in interview today, even with offered translation services. Medication Compliance: Yes Side effects from medications: No Attending Groups: No Mental Status Exam Mental Status Exam Narrative: Declined to engage in interview, even with offered translation services. Has been isolative, in bed, poor self-care. Is eating meals. Diagnostics Vital Signs (24Hr): Vital Signs - 24 hr 10/13/25 08:23 10/13/25 20:00 Temperature 97.8 F 97.4 F Pulse Rate 54 58 Respiratory Rate 16 14 Blood Pressure 97/65 98/60 Pulse Oximetry 95 95 Oxygen Delivery Method Room Air Room Air BMI result Body Mass Index 29.2 Labs 10/09/25 14:05 10/09/25 14:05 Medications Medications Current Medications Acetaminophen (Acetaminophen 325 Mg Tablet) 650 mg PO Q6H PRN PRN Reason: Headache/Pain, Scale 1-10 Last Admin: 10/11/25 08:47 Dose: 650 mg Al Hydroxide/Mg Hydroxide (Magnesium Hydrox/Alum Hydrox 30 Ml Oral.Susp) 30 ml PO Q6H PRN PRN Reason: Heartburn/Nausea Buprenorphine/Naloxone (Buprenorphine/Naloxone 8/2 Mg Film) 1 film SUBLINGUAL TID [facility] Last Admin: 10/13/25 20:26 Dose: 1 film Gabapentin (Gabapentin 400 Mg Capsule) 400 mg PO TID [facility] Last Admin: 10/13/25 20:26 Dose: 400 mg Haloperidol (Haloperidol 5 Mg Tablet) 5 mg PO TID PRN PRN Reason: agitation/psychosis Last Admin: 10/11/25 11:44 Dose: 5 mg Haloperidol (Haloperidol 5 Mg Tablet) 10 mg PO BID [facility] Last Admin: 10/13/25 20:26 Dose: 10 mg Hydroxyzine HCl (Hydroxyzine Hcl 25 Mg Tablet) 25 mg PO Q6H PRN PRN Reason: mild anxiety Last Admin: 10/11/25 11:29 Dose: 25 mg Magnesium Hydroxide (Milk Of Magnesia 30 Ml Oral.Susp) 30 ml PO DAILY PRN PRN Reason: Constipation Melatonin (Melatonin 3 Mg Tablet) 6 mg PO BEDTIME [facility] Last Admin: 10/13/25 20:26 Dose: 6 mg Nicotine (Nicotine 21 Mg Patch.Td24) 21 mg TRANSDERMA DAILY [facility] Last Admin: 10/13/25 08:55 Dose: 21 mg Nicotine Polacrilex (Nicotine Polacrilex 2 Mg Gum) 4 mg BUCCAL Q2H PRN PRN Reason: Nicotine Cravings Last Admin: 10/10/25 15:45 Dose: 4 mg Trazodone HCl (Trazodone Hcl 50 Mg Tablet) 50 mg PO BEDTIME MRX1 PRN PRN Reason: Insomnia Allergies Allergies Allergy/AdvReac Type Severity Reaction Status Date / Time aspirin (ASA) Allergy Unknown RASH Verified 10/09/25 13:41 ibuprofen (From MOTRIN) Allergy Unknown UNKNOWN Verified 10/09/25 13:41 Penicillins (PENICILLINS) Allergy Unknown RASH Verified 10/09/25 13:41 Assessment & Plan Assessment & Plan (1) Schizoaffective disorder: Status: Acute Code(s): F25.9 - Schizoaffective disorder, unspecified (2) PTSD (post-traumatic stress disorder): Status: Acute Code(s): F43.10 - Post-traumatic stress disorder, unspecified (3) Opioid use disorder: Status: Acute Code(s): F11.90 - Opioid use, unspecified, uncomplicated (4) Cocaine use disorder in remission: Status: Acute Code(s): F14.91 - Cocaine use, unspecified, in remission Plan Patient is a 55 year old male with hx of schizoaffective d/o, PTSD, opioid use d/o and cocaine use d/o who presented to ER with his nephew due to increased anxiety and depression secondary to medication noncompliance. Plan: CV 15 minute safety checks Obtain collateral Addiction medicine consult Encourage groups Referral to outpatient psychiatric providers Discharge planning 10/11: Laying in bed. science interpreter present. Patient observed consistently shaking legs throughout assessment. Patient reports feeling anxious and depressed today; pt continues to reports auditory hallucinations however will not go into detail about what the voices are saying. He reports visual hallucinations of shadows . denies SI/HI. Patient reports he is still have voices but they are less today ; denies any side effects from medications. Increase Haldol to 10mg PO bedtime. He reports sleeping well. Encouraged to get out of bed. 10/13/2025: Increase Haldol to 10 mg twice daily 10/14/2025: No changes, encourage engagement in the milieu Reason for continued inpatient stay Substantial Risk for: inability to function Time Spent With Patient Time: Total time managing care of this patient today ____ minutes.
[2025-10-14 08:00] VITALS: BP 99/61; PULSE 56; RESP 12; TEMP 36.3; O2SAT 96
[2025-10-14] MEDS: Nicotine 21 MG PATCH.TD24 TRANSDERMA (08:38)
[2025-10-14 19:20] VITALS: BP 107/67; PULSE 58; RESP 16; TEMP 36.4; O2SAT 95
[2025-10-15 07:48] VITALS: BP 106/57; PULSE 60; RESP 14; TEMP 36.2; O2SAT 96
[2025-10-15] MEDS: Nicotine 21 MG PATCH.TD24 TRANSDERMA (08:37)
--- NOTE | 2025-10-15 12:21 | HO.PSYCHPN ---
Subjective Subjective Date of Service: 10/15/25 Reason For Visit: crisis Subjective Notes: Conditional Voluntary Interim History: honing machine set up operator tool present. Patient reports feeling better than before ; he reports auditory hallucinations have decreased, however continues to decline to describe what they are saying. He reports sleeping well. denies SI/HI/VH. Plan to discharge this week if continues to improve; pt aware. Medication Compliance: Yes Side effects from medications: No Attending Groups: No Mental Status Exam Mental Status Exam Narrative: Pt is alert and oriented; behavior is cooperative and calm; dressed in casual attire; mood is described as better ; eye contact appropriate; Speech is normal rate, volume and not pressured; thought process is organized; Thought content is on tx; denies SI/HI/VH. +AH, declines to go into detail regarding AH. Diagnostics Vital Signs (24Hr): Vital Signs - 24 hr 10/14/25 19:20 10/15/25 07:48 Temperature 97.5 F 97.2 F Pulse Rate 58 60 Respiratory Rate 16 14 Blood Pressure 107/67 106/57 L Pulse Oximetry 95 96 Oxygen Delivery Method Room Air Room Air BMI result Body Mass Index 29.2 Labs 10/09/25 14:05 10/09/25 14:05 Medications Medications Current Medications Acetaminophen (Acetaminophen 325 Mg Tablet) 650 mg PO Q6H PRN PRN Reason: Headache/Pain, Scale 1-10 Last Admin: 10/11/25 08:47 Dose: 650 mg Al Hydroxide/Mg Hydroxide (Magnesium Hydrox/Alum Hydrox 30 Ml Oral.Susp) 30 ml PO Q6H PRN PRN Reason: Heartburn/Nausea Buprenorphine/Naloxone (Buprenorphine/Naloxone 8/2 Mg Film) 1 film SUBLINGUAL TID [facility] Last Admin: 10/15/25 08:39 Dose: 1 film Gabapentin (Gabapentin 400 Mg Capsule) 400 mg PO TID [facility] Last Admin: 10/15/25 08:39 Dose: 400 mg Haloperidol (Haloperidol 5 Mg Tablet) 5 mg PO TID PRN PRN Reason: agitation/psychosis Last Admin: 10/11/25 11:44 Dose: 5 mg Haloperidol (Haloperidol 5 Mg Tablet) 10 mg PO BID [facility] Last Admin: 10/15/25 08:39 Dose: 10 mg Hydroxyzine HCl (Hydroxyzine Hcl 25 Mg Tablet) 25 mg PO Q6H PRN PRN Reason: mild anxiety Last Admin: 10/11/25 11:29 Dose: 25 mg Magnesium Hydroxide (Milk Of Magnesia 30 Ml Oral.Susp) 30 ml PO DAILY PRN PRN Reason: Constipation Melatonin (Melatonin 3 Mg Tablet) 6 mg PO BEDTIME [facility] Last Admin: 10/14/25 20:54 Dose: 6 mg Nicotine (Nicotine 21 Mg Patch.Td24) 21 mg TRANSDERMA DAILY [facility] Last Admin: 10/15/25 08:37 Dose: 21 mg Nicotine Polacrilex (Nicotine Polacrilex 2 Mg Gum) 4 mg BUCCAL Q2H PRN PRN Reason: Nicotine Cravings Last Admin: 10/10/25 15:45 Dose: 4 mg Trazodone HCl (Trazodone Hcl 50 Mg Tablet) 50 mg PO BEDTIME MRX1 PRN PRN Reason: Insomnia Allergies Allergies Allergy/AdvReac Type Severity Reaction Status Date / Time aspirin (ASA) Allergy Unknown RASH Verified 10/09/25 13:41 ibuprofen (From MOTRIN) Allergy Unknown UNKNOWN Verified 10/09/25 13:41 Penicillins (PENICILLINS) Allergy Unknown RASH Verified 10/09/25 13:41 Assessment & Plan Assessment & Plan (1) Schizoaffective disorder: Status: Acute Code(s): F25.9 - Schizoaffective disorder, unspecified (2) PTSD (post-traumatic stress disorder): Status: Acute Code(s): F43.10 - Post-traumatic stress disorder, unspecified (3) Opioid use disorder: Status: Acute Code(s): F11.90 - Opioid use, unspecified, uncomplicated (4) Cocaine use disorder in remission: Status: Acute Code(s): F14.91 - Cocaine use, unspecified, in remission Plan Patient is a 55 year old male with hx of schizoaffective d/o, PTSD, opioid use d/o and cocaine use d/o who presented to ER with his nephew due to increased anxiety and depression secondary to medication noncompliance. Plan: CV 15 minute safety checks Obtain collateral Addiction medicine consult Encourage groups Referral to outpatient psychiatric providers Discharge planning 10/11: Laying in bed. honing machine set up operator tool present. Patient observed consistently shaking legs throughout assessment. Patient reports feeling anxious and depressed today; pt continues to reports auditory hallucinations however will not go into detail about what the voices are saying. He reports visual hallucinations of shadows . denies SI/HI. Patient reports he is still have voices but they are less today ; denies any side effects from medications. Increase Haldol to 10mg PO bedtime. He reports sleeping well. Encouraged to get out of bed. 10/13/2025: Increase Haldol to 10 mg twice daily 10/14/2025: No changes, encourage engagement in the milieu. 10/15: honing machine set up operator tool present. Patient reports feeling better than before ; he reports auditory hallucinations have decreased, however continues to decline to describe what they are saying. He reports sleeping well. denies SI/HI/VH. Plan to discharge this week if continues to improve; pt aware. Patient educated on: diagnosis and medication risk/benefits Reason for continued inpatient stay Substantial Risk for: med/psych decompensation Time Spent With Patient Time: Total time managing care of this patient today _20___ minutes.
[2025-10-15 20:00] VITALS: BP 94/58; PULSE 59; RESP 14; TEMP 36.7; O2SAT 96
[2025-10-16 08:00] VITALS: BP 100/58; PULSE 54; RESP 18; TEMP 36.8; O2SAT 95
[2025-10-16] MEDS: Nicotine 21 MG PATCH.TD24 TRANSDERMA (08:58)
--- NOTE | 2025-10-16 15:19 | HO.PSYCHPN ---
Subjective Subjective Date of Service: 10/16/25 Reason For Visit: crisis Subjective Notes: Conditional Voluntary Interim History: <del>Turkish</del> <del>plant technician</del> <del>present.</del> <del>Keeping</del> <del>to</del> <del>self.</del> <del>Patient</del> <del>reports</del> <del>feeling</del> <del> good </del> <del>today,</del> <del>however</del> <del>expressed</del> <del>frustration</del> <del>d/t</del> <del>not</del> <del>being</del> <del>able</del> <del>to</del> <del>get</del> <del>in</del> <del>contact</del> <del>with</del> <del>his</del> <del>nephew.</del> <del>He</del> <del>reports</del> <del>auditory</del> <del>hallucinations</del> <del>are</del> <del>still</del> <del>present</del> <del>but</del> <del>minimal.</del> <del>denies</del> <del>SI/HI/VH.</del> <del>Patient</del> <del>reports</del> <del>he</del> <del>slept</del> <del>well</del> <del>last</del> <del>night.</del> <del>Encouraged</del> <del>to</del> <del>leave</del> <del>room</del> <del>and</del> <del>bed.</del> <del>Patient</del> <del>focused</del> <del>on</del> <del>discharge</del> <del>and</del> <del>how</del> <del>he</del> <del>will</del> <del>get</del> <del>to</del> <del>the</del> <del>prison</del> <del>if</del> <del>he</del> <del>is</del> <del>not</del> <del>able</del> <del>to</del> <del>get</del> <del>in</del> <del>contact</del> <del>with</del> <del>his</del> <del>nephew;</del> <del>discussed</del> <del>possibly</del> <del>needing</del> <del>to</del> <del>take</del> <del>public</del> <del>transportation.</del> <del>Social</del> <del>worker</del> <del>to</del> <del>refer</del> <del>pt</del> <del>to</del> <del>respite;</del> <del>pt</del> <del>agreeable.</del> <del>Continue</del> <del>tx</del> <del>plan.</del> Medication Compliance: Yes Side effects from medications: No Attending Groups: No Mental Status Exam Mental Status Exam Narrative: Pt is alert and oriented; behavior is cooperative and calm; dressed in casual attire; mood is described as better but frustrated ; eye contact appropriate; Speech is normal rate, volume and not pressured; thought process is organized; Thought content is on tx/discharge; denies SI/HI/VH. +AH, minimal. Diagnostics Vital Signs (24Hr): Vital Signs - 24 hr 10/15/25 20:00 10/16/25 08:00 Temperature 98.1 F 98.2 F Pulse Rate 59 54 Respiratory Rate 14 18 Blood Pressure 94/58 L 100/58 L Pulse Oximetry 96 95 Oxygen Delivery Method Room Air Room Air BMI result Body Mass Index 29.2 Labs 10/09/25 14:05 10/09/25 14:05 Medications Medications Current Medications Acetaminophen (Acetaminophen 325 Mg Tablet) 650 mg PO Q6H PRN PRN Reason: Headache/Pain, Scale 1-10 Last Admin: 10/11/25 08:47 Dose: 650 mg Al Hydroxide/Mg Hydroxide (Magnesium Hydrox/Alum Hydrox 30 Ml Oral.Susp) 30 ml PO Q6H PRN PRN Reason: Heartburn/Nausea Buprenorphine/Naloxone (Buprenorphine/Naloxone 8/2 Mg Film) 1 film SUBLINGUAL TID [facility] Last Admin: 10/16/25 14:54 Dose: 1 film Gabapentin (Gabapentin 400 Mg Capsule) 400 mg PO TID [facility] Last Admin: 10/16/25 14:54 Dose: 400 mg Haloperidol (Haloperidol 5 Mg Tablet) 5 mg PO TID PRN PRN Reason: agitation/psychosis Last Admin: 10/15/25 13:36 Dose: 5 mg Haloperidol (Haloperidol 5 Mg Tablet) 10 mg PO BID [facility] Last Admin: 10/16/25 08:57 Dose: 10 mg Hydroxyzine HCl (Hydroxyzine Hcl 25 Mg Tablet) 25 mg PO Q6H PRN PRN Reason: mild anxiety Last Admin: 10/15/25 13:35 Dose: 25 mg Magnesium Hydroxide (Milk Of Magnesia 30 Ml Oral.Susp) 30 ml PO DAILY PRN PRN Reason: Constipation Melatonin (Melatonin 3 Mg Tablet) 6 mg PO BEDTIME [facility] Last Admin: 10/15/25 20:43 Dose: 6 mg Nicotine (Nicotine 21 Mg Patch.Td24) 21 mg TRANSDERMA DAILY [facility] Last Admin: 10/16/25 08:58 Dose: 21 mg Nicotine Polacrilex (Nicotine Polacrilex 2 Mg Gum) 4 mg BUCCAL Q2H PRN PRN Reason: Nicotine Cravings Last Admin: 10/10/25 15:45 Dose: 4 mg Trazodone HCl (Trazodone Hcl 50 Mg Tablet) 50 mg PO BEDTIME MRX1 PRN PRN Reason: Insomnia Allergies Allergies Allergy/AdvReac Type Severity Reaction Status Date / Time aspirin (ASA) Allergy Unknown RASH Verified 10/09/25 13:41 ibuprofen (From MOTRIN) Allergy Unknown UNKNOWN Verified 10/09/25 13:41 Penicillins (PENICILLINS) Allergy Unknown RASH Verified 10/09/25 13:41 Assessment & Plan Assessment & Plan (1) Schizoaffective disorder: Status: Acute Code(s): F25.9 - Schizoaffective disorder, unspecified (2) PTSD (post-traumatic stress disorder): Status: Acute Code(s): F43.10 - Post-traumatic stress disorder, unspecified (3) Opioid use disorder: Status: Acute Code(s): F11.90 - Opioid use, unspecified, uncomplicated (4) Cocaine use disorder in remission: Status: Acute Code(s): F14.91 - Cocaine use, unspecified, in remission Plan Patient is a 55 year old male with hx of schizoaffective d/o, PTSD, opioid use d/o and cocaine use d/o who presented to ER with his nephew due to increased anxiety and depression secondary to medication noncompliance. Plan: CV 15 minute safety checks Obtain collateral Addiction medicine consult Encourage groups Referral to outpatient psychiatric providers Discharge planning 10/11: Laying in bed. mingler operator present. Patient observed consistently shaking legs throughout assessment. Patient reports feeling anxious and depressed today; pt continues to reports auditory hallucinations however will not go into detail about what the voices are saying. He reports visual hallucinations of shadows . denies SI/HI. Patient reports he is still have voices but they are less today ; denies any side effects from medications. Increase Haldol to 10mg PO bedtime. He reports sleeping well. Encouraged to get out of bed. 10/13/2025: Increase Haldol to 10 mg twice daily 10/14/2025: No changes, encourage engagement in the milieu. 10/15: mingler operator present. Patient reports feeling better than before ; he reports auditory hallucinations have decreased, however continues to decline to describe what they are saying. He reports sleeping well. denies SI/HI/VH. Plan to discharge this week if continues to improve; pt aware. 10/16: mingler operator present. Keeping to self. Patient reports feeling good today, however expressed frustration d/t not being able to get in contact with his nephew. He reports auditory hallucinations are still present but minimal. denies SI/HI/VH. Patient reports he slept well last night. Encouraged to leave room and bed. Patient focused on discharge and how he will get to the prison if he is not able to get in contact with his nephew; discussed possibly needing to take public transportation. rack room worker to refer pt to respite; pt agreeable. Continue tx plan. Patient educated on: diagnosis, medication risk/benefits and therapeutic strategies Reason for continued inpatient stay Substantial Risk for: med/psych decompensation Time Spent With Patient Time: Total time managing care of this patient today ____ minutes.
[2025-10-16 20:00] VITALS: BP 98/50; PULSE 57; RESP 16; TEMP 36.3; O2SAT 95
[2025-10-17 08:00] VITALS: BP 98/73; PULSE 58; RESP 20; TEMP 36.1; O2SAT 95
[2025-10-17] MEDS: Nicotine 21 MG PATCH.TD24 TRANSDERMA (08:46)
--- NOTE | 2025-10-17 14:33 | HO.PSYCHPN ---
Subjective Subjective Date of Service: 10/17/25 Reason For Visit: crisis Subjective Notes: Conditional Voluntary Interim History: water plant operator present. Patient continues to report feeling good ; He reports no longer having auditory hallucinations. denies SI/HI/VH/AH. Patient reports he slept well last night. Showered. Per child welfare social worker, pt was accepted to respite; pt aware. Patient reports he plans on being medication compliant and following up with outpatient providers. Medication Compliance: Yes Side effects from medications: No Attending Groups: No Mental Status Exam Mental Status Exam Narrative: Pt is alert and oriented; behavior is cooperative and calm; dressed in casual attire; mood is described as good ; eye contact appropriate; Speech is normal rate, volume and not pressured; thought process is organized; Thought content is on discharge; denies SI/HI/VH/AH. Diagnostics Vital Signs (24Hr): Vital Signs - 24 hr 10/16/25 20:00 10/17/25 08:00 Temperature 97.3 F 97 F Pulse Rate 57 58 Respiratory Rate 16 20 Blood Pressure 98/50 L 98/73 Pulse Oximetry 95 95 Oxygen Delivery Method Room Air Room Air BMI result Body Mass Index 29.2 Labs 10/09/25 14:05 10/09/25 14:05 Medications Medications Current Medications Acetaminophen (Acetaminophen 325 Mg Tablet) 650 mg PO Q6H PRN PRN Reason: Headache/Pain, Scale 1-10 Last Admin: 10/11/25 08:47 Dose: 650 mg Al Hydroxide/Mg Hydroxide (Magnesium Hydrox/Alum Hydrox 30 Ml Oral.Susp) 30 ml PO Q6H PRN PRN Reason: Heartburn/Nausea Buprenorphine/Naloxone (Buprenorphine/Naloxone 8/2 Mg Film) 1 film SUBLINGUAL TID [facility] Last Admin: 10/17/25 14:31 Dose: 1 film Gabapentin (Gabapentin 400 Mg Capsule) 400 mg PO TID [facility] Last Admin: 10/17/25 14:31 Dose: 400 mg Haloperidol (Haloperidol 5 Mg Tablet) 5 mg PO TID PRN PRN Reason: agitation/psychosis Last Admin: 10/15/25 13:36 Dose: 5 mg Haloperidol (Haloperidol 5 Mg Tablet) 10 mg PO BID [facility] Last Admin: 10/17/25 08:44 Dose: 10 mg Hydroxyzine HCl (Hydroxyzine Hcl 25 Mg Tablet) 25 mg PO Q6H PRN PRN Reason: mild anxiety Last Admin: 10/15/25 13:35 Dose: 25 mg Magnesium Hydroxide (Milk Of Magnesia 30 Ml Oral.Susp) 30 ml PO DAILY PRN PRN Reason: Constipation Melatonin (Melatonin 3 Mg Tablet) 6 mg PO BEDTIME [facility] Last Admin: 10/16/25 20:50 Dose: 6 mg Naloxone HCl (Naloxone Hcl Nasal Take Home 4 Mg [place]) 8 mg NOSTRILALT ONCE ONE Stop: 10/18/25 08:01 Nicotine (Nicotine 21 Mg Patch.Td24) 21 mg TRANSDERMA DAILY [facility] Last Admin: 10/17/25 08:46 Dose: 21 mg Nicotine Polacrilex (Nicotine Polacrilex 2 Mg Gum) 4 mg BUCCAL Q2H PRN PRN Reason: Nicotine Cravings Last Admin: 10/10/25 15:45 Dose: 4 mg Trazodone HCl (Trazodone Hcl 50 Mg Tablet) 50 mg PO BEDTIME MRX1 PRN PRN Reason: Insomnia Allergies Allergies Allergy/AdvReac Type Severity Reaction Status Date / Time aspirin (ASA) Allergy Unknown RASH Verified 10/09/25 13:41 ibuprofen (From MOTRIN) Allergy Unknown UNKNOWN Verified 10/09/25 13:41 Penicillins (PENICILLINS) Allergy Unknown RASH Verified 10/09/25 13:41 Assessment & Plan Assessment & Plan (1) Schizoaffective disorder: Status: Acute Code(s): F25.9 - Schizoaffective disorder, unspecified (2) PTSD (post-traumatic stress disorder): Status: Acute Code(s): F43.10 - Post-traumatic stress disorder, unspecified (3) Opioid use disorder: Status: Acute Code(s): F11.90 - Opioid use, unspecified, uncomplicated (4) Cocaine use disorder in remission: Status: Acute Code(s): F14.91 - Cocaine use, unspecified, in remission Plan Patient is a 55 year old male with hx of schizoaffective d/o, PTSD, opioid use d/o and cocaine use d/o who presented to ER with his nephew due to increased anxiety and depression secondary to medication noncompliance. Plan: CV 15 minute safety checks Obtain collateral Addiction medicine consult Encourage groups Referral to outpatient psychiatric providers Discharge planning 10/11: Laying in bed. water plant operator present. Patient observed consistently shaking legs throughout assessment. Patient reports feeling anxious and depressed today; pt continues to reports auditory hallucinations however will not go into detail about what the voices are saying. He reports visual hallucinations of shadows . denies SI/HI. Patient reports he is still have voices but they are less today ; denies any side effects from medications. Increase Haldol to 10mg PO bedtime. He reports sleeping well. Encouraged to get out of bed. 10/13/2025: Increase Haldol to 10 mg twice daily 10/14/2025: No changes, encourage engagement in the milieu. 10/15: water plant operator present. Patient reports feeling better than before ; he reports auditory hallucinations have decreased, however continues to decline to describe what they are saying. He reports sleeping well. denies SI/HI/VH. Plan to discharge this week if continues to improve; pt aware. 10/16: water plant operator present. Keeping to self. Patient reports feeling good today, however expressed frustration d/t not being able to get in contact with his nephew. He reports auditory hallucinations are still present but minimal. denies SI/HI/VH. Patient reports he slept well last night. Encouraged to leave room and bed. Patient focused on discharge and how he will get to the detention if he is not able to get in contact with his nephew; discussed possibly needing to take public transportation. smokehouse worker to refer pt to respite; pt agreeable. Continue tx plan. 10/17: water plant operator present. Patient continues to report feeling good ; He reports no longer having auditory hallucinations. denies SI/HI/VH/AH. Patient reports he slept well last night. Showered. Per child welfare social worker, pt was accepted to respite; pt aware. Patient reports he plans on being medication compliant and following up with outpatient providers. Patient educated on: diagnosis and medication risk/benefits Reason for continued inpatient stay Substantial Risk for: stable for discharge Time Spent With Patient Time: Total time managing care of this patient today _20___ minutes.
[2025-10-17 19:10] VITALS: BP 110/55; PULSE 62; RESP 16; TEMP 36.3; O2SAT 97
[2025-10-18 07:00] VITALS: BMI 29.7
[2025-10-18 07:45] VITALS: BP 97/70; PULSE 68; RESP 20; TEMP 36.2; O2SAT 97
[2025-10-18] MEDS: Naloxone HCl Nasal TAKE HOME 4 MG SPRAY 8 MG NOSTRILALT (08:45)
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
== END 2025-10-18 10:29 | disposition home or self-care (01) | DRG 750 ==
LOC: HO.ED 15:06 → HO.PADLT16 10-10 13:16
PROVIDERS: Physician Assistant Medical; Admitting Provider Registered Nurse; Emergency Provider Emergency Medicine; Responsible Provider Registered Nurse; Visit Provider Psychiatry & Neurology Psychiatry
DX: F25.9 Schizoaffective disorder, unspecified (principal); F11.20 Opioid dependence, uncomplicated; F43.10 Post-traumatic stress disorder, unspecified; G89.29 Other chronic pain; M54.9 Dorsalgia, unspecified; Z23 Encounter for immunization; F14.91 Cocaine use, unspecified, in remission; Z59.02 Unsheltered homelessness; Z79.899 Other long term (current) drug therapy
CPT/HCPCS: 36415; 80053; 80143; 80179; 80307; 81001; 83690; 83735; 85025; 90656; 93005; 99285; S9485

== ENCOUNTER → 2025-10-09 13:47 | Outpatient (BNV) | payer OTHER, SELFPAY | PROVIDERS: Emergency Provider Emergency Medicine; Visit Provider Internal Medicine | DX: Z13.6 Encounter for screening for cardiovascular disorders (principal) | CPT/HCPCS: 93010 ==

== ENCOUNTER → 2025-10-10 13:04 | Outpatient (BNV) | payer OTHER, SELFPAY | PROVIDERS: Admitting Provider Registered Nurse; Emergency Provider Emergency Medicine; Visit Provider Registered Nurse | DX: F25.1 Schizoaffective disorder, depressive type (principal); F43.10 Post-traumatic stress disorder, unspecified; F11.90 Opioid use, unspecified, uncomplicated; F14.91 Cocaine use, unspecified, in remission; Z59.00 Homelessness unspecified | CPT/HCPCS: 99233 ==

== ENCOUNTER → 2025-10-10 13:04 | Outpatient (BNV) | payer OTHER, SELFPAY | PROVIDERS: Admitting Provider Registered Nurse; Emergency Provider Emergency Medicine; Responsible Provider Registered Nurse; Visit Provider Nurse Practitioner Family | DX: M54.9 Dorsalgia, unspecified (principal); G89.29 Other chronic pain | CPT/HCPCS: 99221 ==